=== PATIENT | male | born 1995 | race African-American/Black ===

== ENCOUNTER 2025-05-11 02:15 | Emergency (ER) | payer MEDICAID ==
[~2025-05-11] VITALS: Ht 195.6 cm; Wt 78.0 kg
[2025-05-11 02:26] VITALS: O2SAT 98
[2025-05-11 03:25] VITALS: TEMP 36.7; O2SAT 98
[2025-05-11 03:27] VITALS: BP 122/65; PULSE 88; RESP 15
[2025-05-11] MEDS ORDERED: IBUP-2029 MT (03:27)
[2025-05-11] MEDS: HYDROCODONE/ACETAMINOPHEN 5/325MG TABLET PO ONE (03:27)
[2025-05-11] MEDS ORDERED: HYDR-4001 MT (03:27)
== END 2025-05-11 03:46 | disposition home or self-care (01) ==
LOC: ER 02:15
DX: S62.101A Fracture of unspecified carpal bone, right wrist, initial encounter for closed fracture (principal); S52.501D Unspecified fracture of the lower end of right radius, subsequent encounter for closed fracture with routine healing; S50.01XA Contusion of right elbow, initial encounter; J45.909 Unspecified asthma, uncomplicated; X58.XXXA Exposure to other specified factors, initial encounter; Y93.89 Activity, other specified; Y92.89 Other specified places as the place of occurrence of the external cause; Y99.8 Other external cause status
CPT/HCPCS: 29125; 73080; 73110; 99284